=== PATIENT | female | born 1990 | race Caucasian/White ===

== ENCOUNTER 2016-12-20 10:59 | Emergency (ER) | payer MEDICAID ==
[2016-12-20] MEDS ORDERED: NS 1,000 ML IV ONE (11:24)
--- NOTE | 2016-12-20 11:25 | UCPHY ---
H & P Patient Type: Established Chief Complaint Nursing Narrative: pt used up opiate pain meds ahead of schedule and is here for pain control of chronic pancreatitis. Sees RAYNA Truong HPI/ROS: CHIEF COMPLAINT: Abdominal pain History by patient HISTORY OF PRESENT ILLNESS: 26-year-old woman with history of recurrent alcohol related pancreatitis presents complaining of ongoing abdominal pain which is typical for her pancreatitis. Patient takes oxycodone prescribed by her PCP for this chronic pain but 3 days ago the pain seemed to get significantly worse prompting her to take more of her oxycodone such that she ran out of her prescription early. She has also had some nausea and vomiting. She denies any alcohol use for the past 2 months. She denies any other drug use. She denies any fever chills. She says the pain feels fairly typical for her but is worse than usual. REVIEW OF SYSTEMS: As in HPI, and all other systems reviewed and are negative - Personal History Current Tetanus/Diphtheria Vaccine: No Current Tetanus Diphtheria and Acellular Pertussis (TDAP): No - Medical/Surgical History Hx Asthma: No Hx Chronic Respiratory Disease: No Hx Diabetes: No Hx Cardiac Disease: No Hx Renal Disease: No Hx Cirrhosis: No Hx Alcoholism: Yes Hx HIV/AIDS: No Hx Splenectomy or Spleen Trauma: No Other PMH: ETOH, Bipolar, anxiety. PANCREATITIS - Family History Significant Family History: No pertinent family hx - Social History Smoking Status: Heavy smoker - Physical Exam Exam: General Appearance: Alert, nontoxic-appearing. Eyes: Pupils equal and round no pallor or injection. No jaundice ENT, Mouth: Mucous membranes moist. Respiratory: Normal, effort, There are no retractions, lungs are clear to auscultation. Cardiovascular: Regular rate and rhythm. Gastrointestinal: Abdomen is soft and nontender, no masses, bowel sounds normal. Neurological: Awake, alert and oriented x 3, no pronator drift, normal gait, no pronator drift Skin: Warm and dry, no rashes. Musculoskeletal: Neck is supple nontender. Extremities are symmetrical, full range of motion. Psychiatric: Patient has normal affect, there is no agitation. Constitutional: Initial Vital Signs Temperature (C) 37.1 C 12/20/16 11:19 Heart Rate 115 H 12/20/16 11:19 Respiratory Rate 20 12/20/16 11:19 Blood Pressure 120/76 12/20/16 11:19 O2 Sat (%) 98 12/20/16 11:19 O2 Delivery Mode Room Air Allergies/Adverse Reactions: acetaminophen Allergy (Severe, Verified 12/20/16 11:23) Hives hydromorphone Allergy (Severe, Verified 12/20/16 11:23) Hives morphine Allergy (Severe, Verified 12/20/16 11:23) Hives Penicillins Allergy (Severe, Verified 12/20/16 11:23) Hives tramadol Allergy (Mild, Verified 12/20/16 11:23) Vomiting ciprofloxacin Allergy (Verified 12/20/16 11:23) Home Medications: Medication Instructions Recorded Clonazepam 04/03/16 Oxycodone HCl 04/03/16 Medical Decision Making ED Course/Re-evaluation: Patient with history of chronic pancreatitis presents complaining of abdominal pain after running out of her oxycodone because of taking extra doses. Exam is unremarkable. There is no laboratory evidence of acute pancreatitis or metabolic disturbance. Her LFTs are slightly above the upper limit of normal but unlikely to be contributing today's presentation. Patient was given IV fluids and Haldol with minimal relief however after the fluid she did state she wanted to go home. I explained that I could not refill her oxycodone because this is a chronic condition and she would need to get this refilled by her primary care physician. We also discussed the possibility that her symptoms might be related to misuse of the oxycodone and potentially opiate withdrawal symptoms. Patient states she has an appointment pending with her primary care physician on Thursday. She is discharged home in stable condition. - Data Points Laboratory Results: Laboratory Results 12/20/16 11:50 12/20/16 11:50 12/20/16 12/20/16 12/20/16 11:50 11:50 11:30 WBC 4.71 10^3/uL 10^3/uL (3.80-9.50) RBC 4.75 10^6/uL 10^6/uL (4.18-5.33) Hgb 13.7 g/dL g/dL (12.6-16.3) Hct 41.2 % % (38.0-47.0) MCV 86.7 fL fL (81.5-99.8) MCH 28.8 pg pg (27.9-34.1) MCHC 33.3 g/dL g/dL (32.4-36.7) RDW 13.0 % % (11.5-15.2) Plt Count 266 10^3/uL 10^3/uL (150-400) MPV 10.1 fL fL (8.7-11.7) Neut % (Auto) 51.2 % % (39.3-74.2) Lymph % (Auto) 31.6 % % (15.0-45.0) [place] % (Auto) 10.4 % % (4.5-13.0) Eos % (Auto) 4.9 % % (0.6-7.6) Baso % (Auto) 1.7 % % (0.3-1.7) Nucleat RBC Rel Count 0.0 % % (0.0-0.2) Absolute Neuts (auto) 2.41 10^3/uL 10^3/uL (1.70-6.50) Absolute Lymphs (auto) 1.49 10^3/uL 10^3/uL (1.00-3.00) Absolute Monos (auto) 0.49 10^3/uL 10^3/uL (0.30-0.80) Absolute Eos (auto) 0.23 10^3/uL 10^3/uL (0.03-0.40) Absolute Basos (auto) 0.08 10^3/uL 10^3/uL (0.02-0.10) Absolute Nucleated RBC 0.00 10^3/uL 10^3/uL (0-0.01) Immature Gran % 0.2 % % (0.0-1.1) Immature Gran # 0.01 10^3/uL 10^3/uL (0.00-0.10) Sodium Cancelled 141 mEq/L mEq/L (134-144) Potassium Cancelled 4.4 mEq/L mEq/L (3.5-5.2) Chloride Cancelled 105 mEq/L mEq/L (97-110) Carbon Dioxide Cancelled 23 mEq/l mEq/l (22-31) Anion Gap Cancelled 13 mEq/L mEq/L (8-16) BUN Cancelled 15 mg/dL mg/dL (7-23) Creatinine Cancelled 0.7 mg/dL mg/dL (0.6-1.0) Estimated GFR Cancelled > 60 Glucose Cancelled 104 mg/dL H mg/dL (70-100) Calcium Cancelled 9.7 mg/dL mg/dL (8.5-10.4) Total Bilirubin Cancelled 0.5 mg/dL mg/dL (0.1-1.4) Conjugated Bilirubin Cancelled 0.3 mg/dL mg/dL (0.0-0.5) Unconjugated Bilirubin Cancelled 0.2 mg/dL mg/dL (0.0-1.1) AST Cancelled 52 IU/L H IU/L (14-46) ALT Cancelled 98 IU/L H IU/L (9-52) Alkaline Phosphatase Cancelled 61 IU/L IU/L (38-126) Total Protein Cancelled 7.1 g/dL g/dL (6.3-8.2) Albumin Cancelled 4.0 g/dL g/dL (3.5-5.0) Lipase Cancelled 56.0 IU/L IU/L (23-300) Specimen Hemolysis Cancelled Urine Color Urine Appearance Urine pH Ur Specific [place] Urine Protein Urine Ketones Urine Blood Urine Nitrate Urine Bilirubin Urine Urobilinogen Ur Leukocyte Esterase Ur Culture Indicated? Urine Glucose Ethyl Alcohol Cancelled 12/20/16 11:30 WBC RBC Hgb Hct MCV MCH MCHC RDW Plt Count MPV Neut % (Auto) Lymph % (Auto) [place] % (Auto) Eos % (Auto) Baso % (Auto) Nucleat RBC Rel Count Absolute Neuts (auto) Absolute Lymphs (auto) Absolute Monos (auto) Absolute Eos (auto) Absolute Basos (auto) Absolute Nucleated RBC Immature Gran % Immature Gran # Sodium Potassium Chloride Carbon Dioxide Anion Gap BUN Creatinine Estimated GFR Glucose Calcium Total Bilirubin Conjugated Bilirubin Unconjugated Bilirubin AST ALT Alkaline Phosphatase Total Protein Albumin Lipase Specimen Hemolysis Urine Color YELLOW Urine Appearance HAZY Urine pH 6.5 (5.0-7.5) Ur Specific [place] 1.010 (1.002-1.030) Urine Protein NEGATIVE (NEGATIVE) Urine Ketones NEGATIVE (NEGATIVE) Urine Blood NEGATIVE (NEGATIVE) Urine Nitrate NEGATIVE (NEGATIVE) Urine Bilirubin NEGATIVE (NEGATIVE) Urine Urobilinogen 0.2 EU EU (0.2-1.0) Ur Leukocyte Esterase NEGATIVE (NEGATIVE) Ur Culture Indicated? NOT INDICATED (NI) Urine Glucose NEGATIVE (NEGATIVE) Ethyl Alcohol Medications Given: Discontinued Medications Haloperidol Lactate (Haldol Injection) 2.5 mg IVP EDNOW ONE Stop: 12/20/16 13:21 Last Admin: 12/20/16 13:30 Dose: 2.5 mg Departure - Departure Disposition: Home, Routine, Self-Care Clinical Impression: Chronic abdominal pain Condition: Good Instructions: Chronic Abdominal Pain (ED) Additional Instructions: You were seen by Dr. Carmela Berger today. Return for any worsening or new concerns. Your labs were all normal today except for slightly elevated liver enzymes. Please have your primary care physician recheck these. Continue to stay off alcohol. You need to get all opioid prescriptions refilled by her primary care physician. I recommend he discuss other ways to treat your chronic abdominal pain as the opioids themselves may be contributing to her symptoms. Referrals: Mario Alberto Truong DO [Primary Care Provider] - As per Instructions Stand Alone Forms: Work Excuse - PQRS PQRS Measurement: na
[2016-12-20 11:45] LABS: COLOR YELLOW; LEUKOCYTE ESTERASE,URINE NEGATIVE (NEGATIVE); NITRITE,URINE NEGATIVE (NEGATIVE); PH,URINE 6.5 (5.0-7.5)
[2016-12-20 12:04] LABS: % IMMATURE GRANULYOCYTES 0.2 % (0.0-1.1); ABSOLUTE IMMATURE GRANULOCYTES 0.01 10^3/uL (0.00-0.10); ADD DIFF? NO; ADD MORPH? NO; ADD SCAN? NO; ATYPICAL LYMPHOCYTE FLAG 10 (0-99); FRAGMENT RBC FLAG 0 (0-99); HEMATOCRIT 41.2 % (38.0-47.0); HEMOGLOBIN 13.7 g/dL (12.6-16.3); LEFT SHIFT FLG 0 (0-99); LIPEMIA HEMOLYSIS FLAG 80 (0-99); MEAN CELL HEMOGLOBIN 28.8 pg (27.9-34.1); MEAN CELL HEMOGLOBIN CONCENTR. 33.3 g/dL (32.4-36.7); MEAN CELL VOLUME 86.7 fL (81.5-99.8); MEAN PLATELET VOLUME 10.1 fL (8.7-11.7); PLATELET CLUMPS FLAG 10 (0-99); PLATELET COUNT 266 10^3/uL (150-400); RED BLOOD CELL COUNT 4.75 10^6/uL (4.18-5.33)
[2016-12-20 12:44] LABS: ALANINE AMINOTRANSFERASE 98 IU/L (9-52); ALKALINE PHOSPHATASE 61 IU/L (38-126); ANION GAP 13 mEq/L (8-16); ASPARTATE AMINOTRANSFERASE 52 IU/L (14-46); BILIRUBIN,TOTAL 0.5 mg/dL (0.1-1.4); BILIRUBIN-CONJUGATED 0.3 mg/dL (0.0-0.5); BILIRUBIN-UNCONJUGATED 0.2 mg/dL (0.0-1.1); CALCIUM 9.7 mg/dL (8.5-10.4); CARBON DIOXIDE 23 mEq/l (22-31); CHLORIDE 105 mEq/L (97-110); CREATININE 0.7 mg/dL (0.6-1.0); GLOMERULAR FILTRATION RATE > 60; GLUCOSE 104 mg/dL (70-100); POTASSIUM 4.4 mEq/L (3.5-5.2); SODIUM 141 mEq/L (134-144); TOTAL PROTEIN 7.1 g/dL (6.3-8.2)
[2016-12-20] MEDS ORDERED: HALOPERIDOL LACT 5 MG/ML INJ IVP ONE (13:20)
[2016-12-20 14:05] VITALS: BP 91/68; PULSE 76; RESP 16; TEMP 98.4; O2SAT 96
== END 2016-12-20 14:05 | disposition home or self-care (01) ==
LOC: CED 10:59
DX: R10.9 Unspecified abdominal pain (principal); R11.2 Nausea with vomiting, unspecified; K85.20 Alcohol induced acute pancreatitis without necrosis or infection; Z72.0 Tobacco use
CPT/HCPCS: 80048-PO; 80076-PO; 81003-PO; 83690-PO; 85025-PO; 96361-PO; 96374-PO; 99215-PO; G0463-PO